=== PATIENT | female | born 1955 | race Caucasian/White ===

== ENCOUNTER 2024-03-20 15:30 | Emergency (ER) | payer MEDICARE, BC, SELFPAY ==
[2024-03-20 15:31] VITALS: BP 161/94
--- NOTE | 2024-03-20 15:49 | ED.SKININJ ---
HPI-Injury
General
Chief Complaint: Bite
Source: patient
Exam Limitations: none
Time Seen by Provider: 03/20/24 15:44
Nursing documentation reviewed up to this point in time: agreed with
History of Present Illness-Injury
Is this injury a work related problem?: No
Is pt an associate of [facility]?: No
Initial Injury comments:
68-year-old female with no past medical history presents emergency department today with concern for syncope. Patient states that around an hour ago, she noticed that the snake was inside the home. Patient was babysitting her grandchildren at the
time and when she noticed a steak, she went to go pick it up to show the children. When she picked up, she immediately had got bitten by the snake. She called her son who came over and stabilize dyspneic with garden clamps and placed it in a
plastic bag. She presents today with the snake. She called poison control who recommended emergency department evaluation. Patient is concerned that she may have been bitten by a venomous copperhead snake. Patient denies any pain at the site of
the bite, any swelling, any redness or streaking up the arm, any chest pain, shortness of breath, any palpitations, any fevers or chills, abdominal pain, nausea. Patient has not had a tetanus shot within the last 5 years.
Review of Systems
Review of Systems
All Other Systems: ROS reviewed and negative except as documented in HPI and ROS
Phy Exam
Physical Exam
Physical Exam:
General: Patient is well appearing and in no acute distress; non-toxic
Skin: Warm and dry, 2 small puncture wounds noted to the posterior aspect of the right first finger. No active bleeding, no swelling. No warmth or tenderness.
Head: Normocephalic, atraumatic
Eyes: Sclera non-icteric. EOMs intact.
Cardiac: Regular rate
Peripheral Vascular:
Pulm: Normal respiratory effort
Musculoskeletal: Full range of motion of the digits, no bony tenderness to palpation
Neuro: CN II-XII intact, no focal neurologic deficits.
Psychiatric: Appropriate mood and affect.
Course
Orders/Labs/Results
Orders:
Orders
03/20/24 16:19
Tetanus/Diphth/Acelpertussis [Adacel] 0.5 ml IM .ONCE ONE
Vital Signs
Initial and Last Documented VS:
Initial Vital Signs
Temp Pulse Resp BP Pulse Ox
98.5 F 96 18 161/94 98
03/20/24 15:31 03/20/24 15:31 03/20/24 15:31 03/20/24 15:31 03/20/24 15:31
Last Documented Vital Signs
Temp Pulse Resp BP Pulse Ox
98.5 F 90 18 143/59 97
03/20/24 15:31 03/20/24 16:27 03/20/24 15:31 03/20/24 16:27 03/20/24 16:27
MDM/Problems Addressed
Differential Diagnosis Includes:
ddx include animal bite, abrasion, laceration, neurovascular injury
MDM/Problems Addressed:
68-year-old female presents emergency department today with concerns of a snakebite. She has no pain at this time, she is completely asymptomatic. She was concerned that she may have gotten bit by a copperhead snake and she called poison control
who advised her to report to the emergency department. On evaluation of the snake by myself and emergency department staff, we do not feel that this is a venomous snake and we feel that snake pattern and size is consistent with Melendrez snake.
Patient's tetanus was updated. Patient was observed in the emergency department and did not develop any symptoms. The puncture wounds were cleansed. Patient is stable for discharge at this time. Poison control did call me for update, I did
provide them with update on patient's case and they are comfortable with plan. Patient stable for discharge.
Chronic conditions affecting care:
n/a
Acute Exacerbation and/or Progression of Chronic Illness:
n/a
*Pulse Oximetry
Patient hypoxic: no
*Critical Care Note
Total Time (30-74mins, 75-104mins- exclusive of procedures): Not Applicable
Data Reviewed
Review of Other/Old Records Reveals: Records (No previous ER physician documentation to review) and Discharge Summary (No discharge summary [employer] to review)
Source: patient and records
Prescriptions/Medications Considered But Not Given:
n/a
Further Testing Considered But Not Given:
n/a
Patient Management
Escalation/DeEscalation of care consider admission/obs:
admit not indicated, patient stable for discharge
ED Attending Note
-
Portions of this chart may have been created with voice recognition software.� Occasional wrong word or��sound alike� substitutions may have occurred due to the inherent limitations of voice recognition software.
Discharge Plan
Departure
Patient Disposition: Home (Routine Discharge)
Date of Disposition: 03/20/24
Time of Disposition: 16:37
Patient with high blood pressure during this ER visit?: Yes
Condition: Good
Discharge Problem:
Bite, snake, non-venomous
Instructions: Animal Bites (DC), Wound Care (DC), BLOOD PRESSURE
Activity Restrictions/Additional Instructions:
Please continue local wound care.
Please return emergency department to signs chest pain, shortness of breath, palpitations, lightheadedness, syncopal episodes, red streaking up the arm, fevers or chills, or any other signs or symptoms concerning to you.
Interventions
Interventions:
*Risk Screen - Suicide Last Done: 03/20/24 15:31
*General Assessment Last Done: 03/20/24 15:31
*Neglect/Abuse Screening Last Done: 03/20/24 15:31
ED- Fall Risk Assessment Last Done: 03/20/24 16:57
*ED COVID-19 Vaccine History Last Done: 03/20/24 15:31
*Nursing Disposition Last Done: 03/20/24 16:58
ED-Skin Assessment Last Done: 03/20/24 16:57
Discharge Date and Time
Discharge Date/Time: 03/20/24 16:59
Print Language: GABONESE
[2024-03-20 16:27] VITALS: BP 143/59
[2024-03-20] MEDS: ADACEL 0.5 ML IM (16:47)
== END 2024-03-20 16:59 | disposition home or self-care (01) ==
LOC: EMR 15:30
PROVIDERS: EMERGENCY PHYSICIAN Emergency Medicine; FAMILY PHYSICIAN Family Medicine
DX: S61.230A Puncture wound without foreign body of right index finger without damage to nail, initial encounter (principal); W59.11XA Bitten by nonvenomous snake, initial encounter; Z23 Encounter for immunization
CPT/HCPCS: 99282; 90471; 90715

== ENCOUNTER 2024-05-16 19:23 | Emergency (ER) | payer MEDICARE, SELFPAY ==
--- NOTE | 2024-05-16 20:21 | ED.MUSCINJ ---
HPI-Injury
General
Chief Complaint: Musculo-Skeletal Complaint
Source: patient
Exam Limitations: none
Time Seen by Provider: 05/16/24 19:50
History of Present Illness-Injury
Is this injury a work related problem?: No
Is pt an associate of [facility]?: No
Initial Injury comments:
This is a 68 year old female that comes in with c/o right knee pain. States that she tripped over her dogs box and fell onto the right knee. States that she did not hit her head or have any LOC. Denies any nausea, vomiting, diarrhea, headache,
dizziness.
Past History
Past History
ED Past Medical History: None; Negative Asthma, HTN, Hypercholesterolemia or NIDDM
ED Past Surgical History: None
Social History
Tobacco: Smoker
Alcohol: None
Personal:
Living: with family
Review of Systems
Review of Systems
All Other Systems: ROS reviewed and negative except as documented in HPI and ROS
Constitutional: Reports no symptoms
EENT: Reports no symptoms
Respiratory: Reports no symptoms
Cardiac: Reports no symptoms
ABD/GI: Reports no symptoms; Denies abdominal pain, nausea, vomiting or diarrhea
: Reports no symptoms
Musculoskeletal: Reports joint pain (Right lateral knee pain)
Skin: Reports no symptoms
Neurological: Reports no symptoms; Denies dizzy or headache
Psychiatric: Reports no symptoms
Musculoskeletal Injury Exam
Musculoskeletal Injury Exam
Right Lateral Knee:
Pain with Movement?: None
Tender to palpation?: None
Soft tissue swelling?: None
External deformity and angulation?: None
Joint effusion?: None
Contusion?: None
Hematoma-local bleeding into tissue?: None
Strain- Sprain- Tear (Connective tissue injury)?: None
Crepitus with movement?: No
Joint instability?: No
Malalignment/deformity?: No
Range of motion: Full
Distal skin color and temperature: normal-warm & good color
Capillary Refill: normal
Normal distal neurovascular exam?: Yes
Phy Exam
General Physical Exam
General Presentation: well appearing and no apparent distress
General age: appears stated age
General Skin: warm and dry
General Habitus: elderly
General Mental: alert
General Hydration: appears well hydrated
Eye Exam
Eye Exam: EOMI
Musculoskeletal Exam
Musculoskeletal Exam: full ROM, no edema and other (Negative for palpation of the right knee. Negative discomfort with flexion. )
Skin Exam
Skin Exam: normal color, warm/dry, no rash and no petechia
Psychiatric Exam
Psychiatric Exam: normal mood/affect
Injury Course
Orders/Labs/Results
Orders:
Orders
05/16/24 19:26
Knee, Right 4 or More Views [CR Knee- Right 4 Or More View*] Urgent
Comment:
Reason For Exam: pain after fall
MDM/Problems Addressed
Differential Diagnosis Includes:
Contusion
MDM/Problems Addressed:
This is a 68 year old female that comes in with c/o right knee discomfort. States that she tripped over her dogs box.
Will get X-ray.
Explained to patient that no fractures or dislocation is noted on the X-ray. This may just be a bruise. Will give patient an breanna wrap to give her support. Patient can use Ibuprofen 600mg every 6 hours for pain and ice to help decrease any swelling.
If she continued with discomfort she will need to see an legal contracts specialist. Patient to return with any concerns.
Chronic conditions affecting care:
NA
Acute Exacerbation and/or Progression of Chronic Illness:
NA
*Radiology
Radiology exam reviewed: radiology read reviewed (Right knee- No acute osseous abnormality. Mild degenerative changes of the patellofemoral compartment. )
*Pulse Oximetry
Patient hypoxic: no
*EKG
Interpreted by ED Provider?: NA
Rate: EKG- N/A
*Electronic Plotting System Operator Interpretation
Rate: Electronic Plotting System Operator- N/A
*Critical Care Note
Total Time (30-74mins, 75-104mins- exclusive of procedures): Not Applicable
ED Attending Note
-
Portions of this chart may have been created with voice recognition software.� Occasional wrong word or��sound alike� substitutions may have occurred due to the inherent limitations of voice recognition software.
Discharge Plan
Departure
Patient Disposition: Home (Routine Discharge)
Date of Disposition: 05/16/24
Time of Disposition: 20:28
Patient with high blood pressure during this ER visit?: Yes
Condition: Good
Covid-19: Not Applicable
Discharge Problem:
Contusion of knee, right
Instructions: Knee Pain (DC)
Referrals:
Nolan Myles MD [Family Provider] -
David Vora MD [Active] - As needed
Activity Restrictions/Additional Instructions:
As discussed, your X-ray is negative for any fractures or dislocation. You do have mild degenerative changes that go along with the aging process. You have been given an breanna to help give your knee support. You may use Ibuprofen 600mg every 6 hour as
needed for pain. If you continue with discomfort you will need to see the legal contracts specialist. You have been given the name of an legal contracts specialist but you may use whom ever you would like. You may also use Ice to help with pain control. IF
YOU HAVE ANY OTHER CONCERNS PLEASE RETURN TO THE EMERGENCY ROOM
Interventions
Interventions:
*General Assessment Last Done: 05/16/24 19:26
*Neglect/Abuse Screening Last Done: 05/16/24 19:26
*ED COVID-19 Vaccine History Last Done: 05/16/24 19:26
Discharge Date and Time
Print Language: [id number]
[2024-05-16 20:32] VITALS: BP 132/70
== END 2024-05-16 21:01 | disposition home or self-care (01) ==
LOC: EMR 19:23
PROVIDERS: EMERGENCY PHYSICIAN Student in an Organized Health Care Education/Training Program; FAMILY PHYSICIAN Family Medicine
DX: S80.01XA Contusion of right knee, initial encounter (principal); W18.09XA Striking against other object with subsequent fall, initial encounter; R03.0 Elevated blood-pressure reading, without diagnosis of hypertension; F17.200 Nicotine dependence, unspecified, uncomplicated
CPT/HCPCS: 99283; 73564